=== PATIENT | male | born 1980 | race American Indian/Alaskan Native ===

== ENCOUNTER 2019-02-15 19:59 | Emergency (ER) | payer OTHER, BC ==
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
[2019-02-15] MEDS ORDERED: IBUPROFEN PO ONE (20:14)
--- NOTE | 2019-02-15 21:31 | Cat Scan Report ---
PROCEDURE: CT CERVICAL SPINE WO CON TECHNIQUE: Computerized tomography of the cervical spine was performed from the skull base to T1 wit hout contrast material. CT DOSE LENGTH PRODUCT: 764.9 mGycm HISTORY: pain COMPARISONS: None . FINDINGS: Unenhanced CT of the cervical spine was performed and data was reformatted into sagittal an d coronal planes. These images demonstrate no fracture or malalignment of the cervical spine. There is a right paracentral disc protrusion at C2-C3 which effaces the anterior margin of the thecal sac results in mild canal stenosis. There is no evidence of nerve root impingement There is a small central disc protrusion at C3-C4 which effaces the anterior margin of the thecal sac and results in mild canal stenosis. There is mild anterior endplate remodeling at C4-C5 and C5-C6. There is partial opacification of the sphenoid sinus without acute sinusitis IMPRESSION: No fracture is seen in the cervical spine This document is electronically signed by Allen Wills MD., February 15 2019 10:29:01 PM ET
--- NOTE | 2019-02-15 21:32 | Cat Scan Report ---
PROCEDURE: CT LUMBAR SPINE WO CON HISTORY: back pain/injury FINDINGS: Unenhanced CT of the lumbar spine was performed and data was reformatted into sagittal and coronal planes. These images demonstrate no fracture or malalignment of the lumbar spine. At T12-L1 and L1-L2 there i s anterior endplate remodeling. There is no evidence of central canal stenosis and significant neural foraminal narrowing or nerve root impingement. There are mild facet degenerative changes at L4-L5. IMPRESSION: No fracture is seen in the lumbar spine This document is electronically signed by Allen Wills MD., February 15 2019 10:30:41 PM ET
--- NOTE | 2019-02-15 22:59 | XRay Report ---
PROCEDURE: XR SHOULDER 2+V LT TECHNIQUE: Left shoulder radiographs, three views. HISTORY: pain COMPARISONS: None . FINDINGS: Fracture (s) and/or Dislocation(s): None . Joint space(s): Normal . Soft tissues: Normal . Bone mineralization: Normal . Foreign bodies: None . IMPRESSION: Normal Examination . This document is electronically signed by Marquise Pina MD., February 15 2019 11:57:41 PM ET
[2019-02-15] MEDS ORDERED: DECADRON IM ONE (23:18)
[2019-02-15] MEDS ORDERED: FLEXERIL PO ONE (23:19)
[2019-02-15] MEDS ORDERED: TORADOL IM ONE (23:19)
[2019-02-15] MEDS ORDERED: NORCO 5/325 PO ONE (23:19)
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
[2019-02-15 23:43] VITALS: BP 145/91
== END 2019-02-16 00:05 | disposition home or self-care (01) ==
LOC: ED 19:59
DX: S16.1XXA Strain of muscle, fascia and tendon at neck level, initial encounter (principal); S39.012A Strain of muscle, fascia and tendon of lower back, initial encounter; S43.402A Unspecified sprain of left shoulder joint, initial encounter; V49.49XA Driver injured in collision with other motor vehicles in traffic accident, initial encounter; Y93.89 Activity, other specified; Y92.488 Other paved roadways as the place of occurrence of the external cause; Y99.8 Other external cause status
CPT/HCPCS: 72125; 72131; 73030; 96372; 99284; J1100; J1885